=== PATIENT | female | born 1960 | race Caucasian/White ===

== ENCOUNTER 2022-07-11 13:29 | Inpatient (IN) ==
--- NOTE | 2022-07-11 13:49 | Emergency Department Note ---
Impression & Plan Acute hypoxemic respiratory failure, Influenza A, Acute exacerbation of chronic obstructive pulmonary disease, Acute dehydration ED Provider Note NAME: EMMANUEL BACK AGE: 61 SEX: F : 1960 ARRIVES VIA: Walk-In INFORMANT: Patient, ED PROVIDER(S): Jean Mann MD Chief Complaint: Shortness of breath, urgent care referral HPI: Patient presents due to concern for worsening shortness of breath. The patient said that she got up to go to work today and felt very short of breath went to urgent care that stated that she was to immediately be referred here but the patient did receive a breathing treatments as well as IM Solu-Medrol. Patient states that she was feeling unwell beginning on Wednesday and did test positive for the flu. The patient likely has lung disease as she states that she has been a pack-a-day smoker for many many years. Patient states that she does not have any prior history of formally diagnosed COPD. Patient states she has shortness of breath and [place]. No orthopnea. Patient has had cough but it is nonproductive. Patient denies any chest pains. No leg swelling. The patient does have a prior history of a thoracic thoracic aortic aneurysm status post repair. This was completed about 10 years ago. Patient denies any nausea vomiting. The patient does believe that she has had decreased p.o. intake. MDM: Patient presented due to concern for shortness of breath. Patient was noted to be hypoxemic in triage and was placed on nasal cannula supplemental. The patient was ordered blood work chest x-ray and the patient was ordered duo nebs. The patient already did receive steroids prior to arrival. Patient reports receiving IM Solu-Medrol. Patient was also ordered magnesium. The patient has a normal white count mild elevation in hemoglobin at 16.1. The patient did receive IV fluids. Kidney function with prerenal azotemia. Mild elevation in ALT and alk phos. Troponin is not elevated. Patient is flu positive. RSV and COVID-negative. On reassessment the patient still feeling short of breath. Given this with her associated hypoxemia I believe the patient would benefit from inpatient treatment at this time. I did speak with the on-call hospitalist Dr. Ohara and the patient was admitted to the medicine service. Critical Care: I have personally spent 42 minutes of critical care time in direct management of this patient. This includes bedside care, interpretation of diagnostic studies, and testing, discussion with consultants, patient, and family members, and other require inpatient management activities. This 42 minutes is in excess of all separately billable procedures. ROS: See HPI for pertinent positives and negatives. A total of 10 systems were reviewed and otherwise negative. Past medical history: See below Surgical history: See below Social history: See below Physical Exam: GENERAL: Nasal cannula in place. EYE EXAM: Normal conjunctiva. PERRL, no anisocoria and EOM's grossly intact w/o pain. NECK: Supple, no nuchal rigidity, no adenopathy, non-tender. No signs of meningismus. FROM of the neck with good chin to chest and neck extension. No stridor. LUNGS: Inspiratory expiratory wheezing which with a prolonged expiratory phase. Normal chest wall mechanics. HEART: NSR, no MRG. ABDOMEN: Abdomen soft, non-tender, normo-active bowel sounds, no masses, no rebound or guarding. BACK: No CVA TTP. SKIN: No rashes and no bruising. UPPER EXTREMITIES: Upper extremities are grossly normal. LOWER EXTREMITIES: Grossly normal, no edema. Negative Homans' sign bilaterally NEURO EXAM: A&O x3, cranial nerves II-XII grossly intact, normal speech, moves all 4 extremities. Differential diagnoses: Reactive airway disease, pneumonia, pneumothorax, COPD, CHF, infections, cardiac ischemia, pulmonary embolism, musculoskeletal, ga strointestinal, as well as other pathologies. Course: Patient was seen and evaluated the bedside. Full history physical exam was performed. EKG interpreted by co Sinus with short SD, rate of 71, normal QRS no ST elevations. Imaging Studies: See Below Cardiac monitoring: An order was placed for continuous cardiac monitoring. The monitor shows a rate of 88 with sinus rhythm. Past Med/Surg History Medical History COPD (chronic obstructive pulmonary disease) Depression Dyslipidemia Hypothyroidism Surgical History H/O thoracic aortic aneurysm repair Social History Smoking Status: Current every day smoker Preferred Language: Bruneian Feels Safe at Home: Yes Allergies Allergies Allergy/AdvReac Type Severity Reaction Status Date / Time No Known Allergies Allergy Unverified 07/11/22 14:31 Home Meds Home Medications Medication Instructions Recorded Confirmed albuterol sulfate 90 mcg/actuation 2 puff inhalation QID 07/11/22 07/11/22 aerosol inhaler atorvastatin 40 mg tablet 40 mg PO DAILY 07/11/22 07/11/22 cholecalciferol (vitamin D3) 50 50 mcg PO DAILY 07/11/22 07/11/22 mcg (2,000 unit) capsule (Vitamin D3) escitalopram oxalate 10 mg tablet 5 mg PO DAILY 07/11/22 07/11/22 levothyroxine 100 mcg tablet 100 mcg PO DAILY 07/11/22 07/11/22 lorazepam 0.5 mg tablet 0.5 mg PO DAILY PRN Anxiety 07/11/22 07/11/22 metoprolol succinate 25 mg 25 mg PO DAILY 07/11/22 07/11/22 tablet,extended release 24 hr prednisone 10 mg tablet 10 - 60 mg PO UD 07/11/22 07/11/22 Results & Data (ED) Vital Signs Vital Signs - 24 hr 07/11/22 13:35 07/11/22 13:55 07/11/22 14:28 Temperature 36.4 C L Temperature Source Temporal Artery Scan Pulse Rate 83 Pulse Rate [Right Finger] Respiratory Rate 18 Respiratory Effort / Characteristics Non-Labored Spontaneous Respiratory Depth Normal Respiratory Pattern Regular Blood Pressure 123/65 Blood Pressure Mean 84 Blood Pressure Position Sitting Pulse Oximetry 85 L 85 L 95 Oxygen Delivery Method Room Air Room Air Nasal Cannula Oxygen Flow Rate 4 Sepsis Recent Fever Within 48 Hours Yes Sepsis New/Unexplained Change in Mental Status No Sepsis Action Taken by Nursing No Action Required Oxygen Flow Rate - Titration 3 Pulse Oximetry Post Tiitration 93 07/11/22 14:44 07/11/22 16:02 Temperature Temperature Source Pulse Rate Pulse Rate [Right Finger] 78 Respiratory Rate 20 Respiratory Effort / Characteristics Non-Labored Spontaneous Respiratory Depth Respiratory Pattern Blood Pressure Blood Pressure Mean Blood Pressure Position Pulse Oximetry 95 84 L Oxygen Delivery Method Nasal Cannula Nasal Cannula Oxygen Flow Rate 4 0 Sepsis Recent Fever Within 48 Hours Sepsis New/Unexplained Change in Mental Status Sepsis Action Taken by Nursing Oxygen Flow Rate - Titration 6 Pulse Oximetry Post Tiitration 96 Home Medications Current Medication List: was personally reviewed by me Laboratory Data Attestation: I reviewed the patient's lab results. Result diagrams: 07/11/22 14:25 07/11/22 14:25 Lab Results 07/11/22 07/11/22 07/11/22 Range/Units 14:25 14:25 14:25 WBC 9.54 (4.8-10.8) K/ul RBC 4.91 (3.93-5.22) M/uL Hgb 16.1 H (12.0-16.0) g/dl Hct 47.8 H (34.1-44.9) % MCV 97.4 (80.0-100.0) fL MCH 32.8 (25.0-34.0) pg MCHC 33.7 (32.0-36.0) g/dL RDW Std Deviation 47.0 H (36.4-46.3) fL RDW Coeff of Walter 13.1 (11.5-14.5) % Plt Count 162 (130-400) K/uL MPV 9.0 L (9.4-12.3) fL Immature Gran % (Auto) 0.3 % Neut % (Auto) 87.4 % Lymph % (Auto) 10.3 % [place] % (Auto) 1.9 % Eos % (Auto) 0.0 % Baso % (Auto) 0.1 % Neut # (Auto) 8.34 H (1.4-6.5) K/uL Lymph # (Auto) 0.98 L (1.2-3.4) K/uL [place] # (Auto) 0.18 L (0.24-0.82) K/uL Eos # (Auto) 0.00 (0-0.50) K/uL Baso # (Auto) 0.01 (0-0.2) K/uL Immature Gran # (Auto) 0.03 H (0.00-0.02) K/uL Sodium 137 (136-145) mmol/L Potassium 4.1 (3.5-5.1) mmol/L Chloride 99 (98-107) mmol/L Carbon Dioxide 33 H (21-32) mmol/L Anion Gap 5 (3-11) BUN 26 H (6-23) mg/dl Creatinine 0.71 (0.6-1.2) mg/dl Est Cr Clr Drug Dosing 78.9 ml/min Est GFR ( Amer) 107.3 ml/min Est GFR (Non-Af Amer) 92.6 ml/min BUN/Creatinine Ratio 36.6 H (10-20) Glucose 140 H (70-99(Fasting)) mg/dl Calcium 8.5 (8.5-10.1) mg/dl Magnesium 1.8 (1.7-2.4) mg/dl Total Bilirubin 0.4 (0.2-1.0) mg/dl AST 36 (13-39) U/L ALT 59 H (7-52) U/L Alkaline Phosphatase 114 H (34-104) U/L Troponin I High Sens 3.8 (0-14) pg/ml Total Protein 6.8 (6.0-8.3) gm/dl Albumin 3.8 (3.4-5.0) gm/dl Globulin 3.0 (2.5-4.0) gm/dl Albumin/Globulin Ratio 1.3 (0.9-2) Procalcitonin < 0.05 (0-0.5) ng/ml SARS-CoV-2 (PCR) (Negative) Influenza Type A (PCR) (Neg) Influenza Type B (PCR) (Neg) RSV (RT-PCR) (Neg) 07/11/22 Range/Units 14:25 WBC (4.8-10.8) K/ul RBC (3.93-5.22) M/uL Hgb (12.0-16.0) g/dl Hct (34.1-44.9) % MCV (80.0-100.0) fL MCH (25.0-34.0) pg MCHC (32.0-36.0) g/dL RDW Std Deviation (36.4-46.3) fL RDW Coeff of Walter (11.5-14.5) % Plt Count (130-400) K/uL MPV (9.4-12.3) fL Immature Gran % (Auto) % Neut % (Auto) % Lymph % (Auto) % [place] % (Auto) % Eos % (Auto) % Baso % (Auto) % Neut # (Auto) (1.4-6.5) K/uL Lymph # (Auto) (1.2-3.4) K/uL [place] # (Auto) (0.24-0.82) K/uL Eos # (Auto) (0-0.50) K/uL Baso # (Auto) (0-0.2) K/uL Immature Gran # (Auto) (0.00-0.02) K/uL Sodium (136-145) mmol/L Potassium (3.5-5.1) mmol/L Chloride (98-107) mmol/L Carbon Dioxide (21-32) mmol/L Anion Gap (3-11) BUN (6-23) mg/dl Creatinine (0.6-1.2) mg/dl Est Cr Clr Drug Dosing ml/min Est GFR ( Amer) ml/min Est GFR (Non-Af Amer) ml/min BUN/Creatinine Ratio (10-20) Glucose (70-99(Fasting)) mg/dl Calcium (8.5-10.1) mg/dl Magnesium (1.7-2.4) mg/dl Total Bilirubin (0.2-1.0) mg/dl AST (13-39) U/L ALT (7-52) U/L Alkaline Phosphatase (34-104) U/L Troponin I High Sens (0-14) pg/ml Total Protein (6.0-8.3) gm/dl Albumin (3.4-5.0) gm/dl Globulin (2.5-4.0) gm/dl Albumin/Globulin Ratio (0.9-2) Procalcitonin (0-0.5) ng/ml SARS-CoV-2 (PCR) NEGATIVE (Negative) Influenza Type A (PCR) Positive A* (Neg) Influenza Type B (PCR) Negative (Neg) RSV (RT-PCR) Negative (Neg) Administered Medications Discontinued Medications Albuterol (Albut/Ipratrop 3mg/0.5mg Neb 3 Ml Vial) 12 ml INH ONE STA Stop: 07/11/22 14:11 Last Admin: 07/11/22 14:44 Dose: 12 ml Documented By: HA Albuterol (Albut/Ipratrop 3mg/0.5mg Neb 3 Ml Vial) 12 ml NEB ONE ONE; Protocol Stop: 07/11/22 16:19 Last Admin: 07/11/22 16:40 Dose: 12 ml Documented By: HA Guaifenesin (Guaifenesin 600 Mg Tabcr) 1,200 mg PO NOW STA Stop: 07/11/22 16:21 Last Admin: 07/11/22 16:25 Dose: 1,200 mg Documented By: CANDIDA Sodium Chloride (Nss 1000ml) 1,000 mls @ 999 mls/hr IV .Q1H1M JUAN Stop: 07/11/22 15:15 Last Infusion: 07/11/22 15:25 Dose: 0 mls/hr Documented By: Admin: 07/11/22 14:24 Dose: 999 mls/hr Documented By: CANDIDA Magnesium Sulfate/Dextrose (Magnesium Sulfate / D5w) 1 gm in 100 mls @ 100 mls/hr IV Q1H JUAN Stop: 07/11/22 16:14 Last Infusion: 07/11/22 16:03 Dose: 0 mls/hr Documented By: Admin: 07/11/22 15:03 Dose: 100 mls/hr Documented By: Infusion: 07/11/22 15:03 Dose: 100 mls/hr Documented By: Admin: 07/11/22 14:41 Dose: 100 mls/hr Documented By: CANDIDA Oseltamivir Phosphate (Oseltamivir Phosphate 75 Mg Cap) 75 mg PO NOW STA; Protocol Stop: 07/11/22 16:31 Last Admin: 07/11/22 16:58 Dose: 75 mg Documented By: CANDIDA Imaging Data Radiologist's Impression: Chest X-Ray 07/11/22 14:10 XR chest 1V portable CLINICAL HISTORY: Dyspnea. COMPARISON STUDY: No previous studies for comparison. FINDINGS: Median sternotomy wires. Surgical clips project over the upper mediastinum. Lung volumes are normal. Lungs are clear. There is no pneumothorax or pleural effusion. Cardiac size is normal. Mediastinal contours are normal. There is no evidence for pulmonary edema. IMPRESSION: No acute cardiopulmonary findings. ACT 112: Negative or not required by law. Electronically signed by: Augusto Johnson M.D. 07/11/2022 3:11 PM Discharge Plan Visit Data Chief Complaint: Flu Like Symptoms Stated Complaint: FLU LIKE SYMPTOMS, POSSIBLE PNEUMONIA ED Provider: Jean Mann Discharge Problem: Acute hypoxemic respiratory failure, Influenza A, Acute exacerbation of chronic obstructive pulmonary disease, Acute dehydration Patient Disposition: Admitted As Inpatient Discharge Instructions Interventions: ED Discharge Assessment Last Done: 07/11/22 18:57
[2022-07-11] MEDS ORDERED: ALBUT/IPRATROP 3MG/0.5MG NEB 3 ML VIAL INH STA (14:10)
[2022-07-11] MEDS ORDERED: SODIUM CHLORIDE 0.9% 1000ML 1,000 ML IV SCH (14:15)
[2022-07-11] MEDS: MAGNESIUM SULFATE / D5W 1 GM/100 ML BAG IV SCH ×2 (14:41→15:03)
[2022-07-11 14:49] LABS: Basophils # (auto) 0.01 K/uL (0-0.2); Basophils % (auto) 0.1 %; Hematocrit (blood only) 47.8 % (34.1-44.9); Hemoglobin 16.1 g/dl (12.0-16.0); Immature Granulocytes # (auto) 0.03 K/uL (0.00-0.02); Immature Granulocytes % (auto) 0.3 %; Lymphocytes # (auto) 0.98 K/uL (1.2-3.4); Lymphocytes % (auto) 10.3 %; Mean Corpuscular Hemoglobin 32.8 pg (25.0-34.0); Mean Corpuscular Hgb Conc 33.7 g/dL (32.0-36.0); Mean Corpuscular Volume 97.4 fL (80.0-100.0); Monocytes # (auto) 0.18 K/uL (0.24-0.82); Monocytes % (auto) 1.9 %; Neutrophils # (auto) 8.34 K/uL (1.4-6.5); Neutrophils % (auto) 87.4 %; Platelet Count 162 K/uL (130-400); RDW Coefficient of Variation 13.1 % (11.5-14.5); Red Blood Count 4.91 M/uL (3.93-5.22); White Blood Count 9.54 K/ul (4.8-10.8)
--- NOTE | 2022-07-11 15:13 | XRay Report ---
XR chest 1V portable CLINICAL HISTORY: Dyspnea. COMPARISON STUDY: No previous studies for comparison. FINDINGS: Median sternotomy wires. Surgical clips project over the upper mediastinum. Lung volumes ar e normal. Lungs are clear. There is no pneumothorax or pleural effusion. Cardiac size is normal. Medi astinal contours are normal. There is no evidence for pulmonary edema. IMPRESSION: No acute cardiopulmonary findings. ACT 112: Negative or not required by law. Electronically signed by: Augusto Johnson M.D. 07/11/2022 3:11 PM
[2022-07-11 15:17] LABS: Albumin Globulin Ratio 1.3 (0.9-2); Albumin Level 3.8 gm/dl (3.4-5.0); BUN Creatinine Ratio 36.6 (10-20); Bilirubin,Total 0.4 mg/dl (0.2-1.0); Calcium 8.5 mg/dl (8.5-10.1); Creatinine Clr Calc Pharmacy 78.9 ml/min; Est GFR (African American) 107.3 ml/min; Est GFR (Non-African American) 92.6 ml/min; Magnesium 1.8 mg/dl (1.7-2.4); Potassium 4.1 mmol/L (3.5-5.1); Total Protein 6.8 gm/dl (6.0-8.3); Troponin I High Sensitivity 3.8 pg/ml (0-14)
[2022-07-11 15:28] LABS: Influenza B virus by PCR Negative (Neg); RSV by PCR Negative (Neg); SARS CoV2 RNA(COVID-19) Ceph NEGATIVE (Negative)
[2022-07-11 15:42] LABS: Influenza A virus by PCR Positive (Neg)
[2022-07-11] MEDS ORDERED: ALBUT/IPRATROP 3MG/0.5MG NEB 3 ML VIAL NEB ONE (16:18)
[2022-07-11] MEDS ORDERED: guaiFENesin 600 MG TABCR PO STA (16:20)
[2022-07-11] MEDS ORDERED: OSELTAMIVIR PHOSPHATE 75 MG CAP PO STA (16:30)
--- NOTE | 2022-07-11 17:00 | History & Physical Report ---
Date of Service July 11, 2022 Assessment & Plan (1) Influenza A: Plan: Patient test positive for a moment influenza after having a 2-day prodromal inner home. She called her primary care doctor who is in [facility] received a prednisone taper She started on Tamiflu therapy here and will be to have her acute on chronic respiratory failure treated as below Procalcitonin is negative presentation the patient will not be given antibiotics (2) COPD (chronic obstructive pulmonary disease): Plan: Patient is COPD with abnormal chest x-ray with hyperinflation and continued tobacco use. She is continued on DuoNebs will be given intravenous Solu-Medrol Patient required supplemental oxygen is tachypneic and frequently desaturates just with conversation (3) Tobacco abuse: Plan: Patient counseled on smoking cessation she also denies by offering of a nicotine patch (4) H/O thoracic aortic aneurysm repair: Plan: Patient had this done in [place] in [place]. Reportedly it is slightly enlarging. I offered work-up. But the patient does not wish to prolong her inpatient hospital stay. She is agreeable to being connected with outpatient providers in the area to continue to have surveillance of her aortic aneurysm repair (5) Depression: Plan: Continue Lexapro (6) Hypothyroidism: Plan: Synthroid continues at 100 mcg (7) Dyslipidemia: Plan: Patient is on atorvastatin 40 Plan Lovenox for DVT prevention History of Present Illness Primary Care Provider: Jarrod Hardwick, DO 61-year-old female who is currently a smoker who has been ill for 2 to 3 days at home. She recently moved to the area and called her family doctor to [facility] who phoned her in a [employer] Dosep[employer]. Patient has had both her COVID and influenza vaccines but test influenza positive here in the emergency department. She is in acute on chronic respiratory distress with hypoxia and increased work of breathing with tachypnea and accessory muscle use. Her chest x-ray does not show any pneumonia but she does have changes of COPD She admitted for hypoxia oxygen support Tamiflu and treatment for acute on c hronic respiratory failure COPD Allergies Allergy/AdvReac Type Severity Reaction Status Date / Time No Known Allergies Allergy Unverified 07/11/22 14:31 Home Medications Medication Instructions Recorded Confirmed Type albuterol sulfate 90 mcg/actuation 2 puff inhalation QID 07/11/22 07/11/22 History aerosol inhaler atorvastatin 40 mg tablet 40 mg PO DAILY 07/11/22 07/11/22 History cholecalciferol (vitamin D3) 50 50 mcg PO DAILY 07/11/22 07/11/22 History mcg (2,000 unit) capsule (Vitamin D3) escitalopram oxalate 10 mg tablet 5 mg PO DAILY 07/11/22 07/11/22 History levothyroxine 100 mcg tablet 100 mcg PO DAILY 07/11/22 07/11/22 History lorazepam 0.5 mg tablet 0.5 mg PO DAILY PRN Anxiety 07/11/22 07/11/22 History metoprolol succinate 25 mg 25 mg PO DAILY 07/11/22 07/11/22 History tablet,extended release 24 hr prednisone 10 mg tablet 10 - 60 mg PO UD 07/11/22 07/11/22 History Past Med/Surg History Medical History (Updated 07/11/22 @ 16:55 by Audi Ohara MD) COPD (chronic obstructive pulmonary disease) Depression Dyslipidemia Hypothyroidism Social History Smoking Status: Current every day smoker Preferred Language: Venezuelan Feels Safe at Home: Yes Review of Systems 2 Review of Systems: Moderate respiratory distress and fatigue no headache, no visual changes no speech or swallowing issues no chest pain, pressure or palpitations shortness of breath, nonproductive cough plus audible wheezes no abdominal pain, nausea or vomiting, recently having loose bowel movements no dysuria, hematuria or frequency no focal joint pain or swelling no back pain, CVA tenderness or radicular pain no bruising, bleeding or rashes no focal signs of weakness or numbness or altered sensation no complaints of anxiety or depression.. Physical Exam Physical Exam: The patient appeared well nourished and normally developed. She is in moderate respiratory distress with tachypnea and increased use of accessory muscles Vital signs as documented. Head exam is normocephalic atraumatic Neck is without JVD, thyromegaly, or carotid bruits. Lungs are poor air movement throughout with expiratory wheezes Cardiac exam, Rhythm is regular.. No murmurs, rubs or gallops. Abdominal exam reveals normal bowel sounds, soft non tender, no masses Extremities are nonedematous and both pedal pulses are present Neurologic exam is alert and oriented, no focal loss of strength or sensation Skin is without bruises or rashes Psychologically is with concerns for anxiety home lorazepam as ordered Results & Data Results & Data ([facility]) Vital Signs (Past 12 Hours) Vital Signs Temp Pulse Pulse Resp BP Pulse Ox O2 Del Method 07/11/22 16:02 84 L Nasal Cannula 07/11/22 14:44 78 20 95 Nasal Cannula 07/11/22 14:28 95 Nasal Cannula 07/11/22 13:55 85 L Room Air 07/11/22 13:35 97.5 F L 83 18 123/65 85 L Room Air O2 Flow Rate 07/11/22 16:02 0 07/11/22 14:44 4 07/11/22 14:28 4 07/11/22 13:55 07/11/22 13:35 Diagnostic Findings Chest X-Ray 07/11/22 14:10 XR chest 1V portable CLINICAL HISTORY: Dyspnea. COMPARISON STUDY: No previous studies for comparison. FINDINGS: Median sternotomy wires. Surgical clips project over the upper mediastinum. Lung volumes are normal. Lungs are clear. There is no pneumothorax or pleural effusion. Cardiac size is normal. Mediastinal contours are normal. There is no evidence for pulmonary edema. IMPRESSION: No acute cardiopulmonary findings. ACT 112: Negative or not required by law. Electronically signed by: Augusto Johnson M.D. 07/11/2022 3:11 PM Code Status & VTE Plan VTE Prophylaxis Plan VTE Prophylaxis will be ordered: Yes PG Care Time/CCT Total # of Minutes Spent Total Time Spent with Patient: Total time spent is greater than 50% in coordination of care (as documented) at patient's floor/unit and/or counseling patient: Coding Level of Care Code 68375 Initial Inpt Care Lvl 3 Diagnoses Influenza A J10.1 COPD (chronic obstructive pulmonary disease) J44.9 Tobacco abuse Z72.0 H/O thoracic aortic aneurysm repair Z98.890; Z86.79 Depression F32.A Hypothyroidism E03.9 Dyslipidemia E78.5
[2022-07-11] MEDS ORDERED: ACETAMINOPHEN 325 MG TAB PO PRN (19:10)
[2022-07-11] MEDS ORDERED: LORazepam 0.5 MG TAB PO PRN (19:10)
[2022-07-11] MEDS ORDERED: ONDANSETRON INJ 2 MG/ML 2 ML VIAL IV PRN (19:10)
[2022-07-11] MEDS ORDERED: ALUMINUM/MAGNESIUM SUSP 30 ML UDC PO PRN (19:10)
[2022-07-11] MEDS: ALBUT/IPRATROP 3MG/0.5MG NEB 3 ML VIAL NEB SCH (19:43)
[2022-07-11] MEDS: ENOXAPARIN INJ 40 MG/0.4 ML SYR SQ SCH (21:36)
[2022-07-12] MEDS: LEVOTHYROXINE SODIUM 100 MCG TABLET PO SCH (06:17)
[2022-07-12] MEDS: methylPREDNISolone 40 MG in SYRINGE 0 ML IV SCH ×2 (06:18→18:20)
[2022-07-12 07:02] LABS: Hematocrit (blood only) 44.4 % (34.1-44.9); Hemoglobin 15.2 g/dl (12.0-16.0); Mean Corpuscular Hemoglobin 32.4 pg (25.0-34.0); Mean Corpuscular Hgb Conc 34.2 g/dL (32.0-36.0); Mean Corpuscular Volume 94.7 fL (80.0-100.0); Mean Platelet Volume 9.2 fL (9.4-12.3); Platelet Count 158 K/uL (130-400); RDW Coefficient of Variation 12.8 % (11.5-14.5); RDW Standard Deviation 44.7 fL (36.4-46.3); Red Blood Count 4.69 M/uL (3.93-5.22)
[2022-07-12 07:35] LABS: BUN Creatinine Ratio 45.5 (10-20); Calcium 8.2 mg/dl (8.5-10.1); Creatinine Clr Calc Pharmacy 101.8 ml/min; Est GFR (African American) 118.2 ml/min; Est GFR (Non-African American) 101.9 ml/min; Magnesium 2.3 mg/dl (1.7-2.4); Potassium 4.5 mmol/L (3.5-5.1)
[2022-07-12] MEDS: ALBUT/IPRATROP 3MG/0.5MG NEB 3 ML VIAL NEB SCH ×4 (07:35→19:03)
[2022-07-12] MEDS: METOPROLOL SUCC 25MG EXT REL TAB PO SCH (08:09)
[2022-07-12] MEDS: ESCITALOPRAM OXALATE 10 MG TAB PO SCH (08:09)
[2022-07-12] MEDS: OSELTAMIVIR PHOSPHATE 75 MG CAP PO SCH ×2 (08:10→21:17)
[2022-07-12] MEDS: ATORVASTATIN 40 MG TAB PO SCH (08:10)
--- NOTE | 2022-07-12 10:01 | Electrocardiogram Report ---
Test Reason : Blood Pressure : / mmHG Vent. Rate : 071 BPM Atrial Rate : 071 BPM P-R Int : 110 ms QRS Dur : 070 ms QT Int : 400 ms P-R-T Axes : 084 080 083 degrees QTc Int : 434 ms Poor data quality, interpretation may be adversely affected Sinus rhythm with Premature supraventricular complexes Right atrial enlargement Borderline ECG No previous ECGs available Confirmed by Evan Vásquez ([id number]) on 07/12/2022 10:00:54 AM Referred By: REFERRED SELF Confirmed By:Daron Vásquez
--- NOTE | 2022-07-12 12:20 | Hospitalist Progress Note ---
Date of Service July 12, 2022 Assessment & Plan (1) Acute hypoxemic respiratory failure: Plan: - Secondary to acute COPD exacerbation and Influenza A - Continue 2 L O2 nc at this time - Respiratory following - check 2 step later today, patient states she would like to try and go home later (but states she is NOT willing to have home with Oxygen) She had 2 step today and recommended Oxygen with exertion and she is NOT willing to have home O2 Will have patient repeat the 2 step tomorrow (2) Acute exacerbation of chronic obstructive pulmonary disease: Plan: - continue neb treatments, flutter valve, tamiflu, Solu-medrol - Procalcitonin normal, WBC normal (no antibiotics given) - Patient states she is motivated and willing to stop smoking (3) Influenza A: Plan: - Continue Tamiflu, O2, solumedrol, mebulizer treatments, flutter valve (4) Dyslipidemia: Plan: Continue Atorvastatin 40mg daily (5) Hypothyroidism: Plan: Continue Levothyroxine 100mcg daily (6) Depression: Plan: continue Lexapro (7) Tobacco abuse: Plan: - Counseled on smoking cessation and treatment for this Patient states she is not interested in having any medication to help her quit. she states she is willing though to stop smoking (8) COPD (chronic obstructive pulmonary disease): Plan: - CXR with hyperinflation and continued tobacco use. - continue on DuoNebs and IV Solu-Medrol Yesterday in ER patient required supplemental oxygen is tachypneic and frequently desaturates just with conversation, today she was not in distress with O2 in place but was only saturating in low to mid 80s (9) History of thoracic aortic aneurysm repair: Plan: Patient had this repair at [facility] in 2011. She states she follows with them and her PCP She is scheduled for repeat imges in October Offered work up here and she does not wish to have any scans during this admission Admission and Anticipated Discharge Date Admission Date: July 11, 2022 Supervising Physician Co-Signing Physician Notes I did not personally see or examine the patient today. I reviewed all vinson points including radiology, labs, vitals and agree with Yanira Orona PA-C except as otherwise noted: none. Subjective Patient was sleeping and awoke to her name. She had her O2 off and states she took it off at 8 Am for breakfast and then fell asleep without it. She states she is feeling some better and would like to go home today. She states she is not going to use Oxygen at home, even if we tell or suggest that she does. I placed a pulse oximeter on patient (she had been off O2 x 3 hours) Saturation off O2 was 83-85. Placed Oxygen back on and Saturations improved to 93-96. She was not in any distress off the Oxygen but saturation was less than 85%. She denies any chest pain, shortness of breath, abdominal pain or N/V. Patient states she was smoking 1ppd and has had no cigarettes since Wednesday. She does not want a nicotine patch. She states she is motivated to finally stop smoking. She also has a hx of a thoracic aortic aneurysm repair and follows with [facility] is to have repeat scan in October. ED offered work up while here and patient refused and continues to refuse. Review of Systems Constitutional: + fatigue; no fever, no chills and no body aches Patient had severe myalgias prior to admission but states they are improved Ear, Nose, Mouth, Throat: no ear pain, no nasal congestion, no post nasal drip and no epistaxis Respiratory: + cough and + chest congestion; no dyspnea, no hemoptysis and no pain on inspiration Cardiovascular: no chest pain, no dyspnea at rest, no syncope and no edema Gastrointestinal: no nausea, no vomiting, no change in bowel habits, no constipation and no blood in stools Genitourinary: no dysuria, no difficulty urinating and no hematuria Integumentary: no rash, no lesions, no new lesions and no erythema Neurologic: no falls, no seizure-like activity, no headache(s) and no confusion Psychiatric: + depression and + hopelessness; no suicidal ideation, no confusion and no hallucinations Patient states st times she is depressed with her multiple medical issues and she is aware she has caused the lung disease by smoking. She does states she is motivated to stop smoking once and for all since this illness. But she states that she refuses to be discharged home with Oxygen, but she is willing to keep on for now. Physical Exam Constitutional: WD/WN, vitals as above ENMT: external ear and nose normal, oropharynx normal Neck: trachea midline, no thyromegaly Respiratory: normal respiratory effort, + cough, able to speak in complete sentences and + prolonged expiratory phase; no respiratory distress, no labored breathing and does not use accessory muscles mild expiratory wheeze Cardiovascular: RRR, no murmur, no edema Gastrointestinal (Abdomen): normal bowel sounds, soft, nontender, no hepatosplenomegaly Neurologic: PERRL, EOMI, accommodation nl, no face palsy, no dysarthria Psychiatric: A+Ox3, euthymic affect Results & Data Results & Data ([facility]) Vital Signs (Past 12 Hours) Vital Signs Temp Pulse Pulse Resp BP Pulse Ox O2 Del Method 07/12/22 11:51 67 20 93 Nasal Cannula 07/12/22 11:41 36.2 C L 66 18 126/61 93 Nasal Cannula 07/12/22 09:05 Nasal Cannula 07/12/22 07:34 36.6 C 65 18 116/65 96 Room Air 07/12/22 07:36 65 16 96 Nasal Cannula 07/12/22 07:06 79 07/12/22 04:12 36.5 C 72 20 132/73 90 Nasal Cannula O2 Flow Rate 07/12/22 11:51 2 07/12/22 11:41 2 07/12/22 09:05 1 07/12/22 07:34 07/12/22 07:36 2 07/12/22 07:06 07/12/22 04:12 2 Laboratory Results Abnormal lab results 07/11/22 07/11/22 07/11/22 Range/Units 14:25 14:25 14:25 Hgb 16.1 H (12.0-16.0) g/dl Hct 47.8 H (34.1-44.9) % RDW Std Deviation 47.0 H (36.4-46.3) fL MPV 9.0 L (9.4-12.3) fL Neut # (Auto) 8.34 H (1.4-6.5) K/uL Lymph # (Auto) 0.98 L (1.2-3.4) K/uL Iron # (Auto) 0.18 L (0.24-0.82) K/uL Immature Gran # (Auto) 0.03 H (0.00-0.02) K/uL Carbon Dioxide 33 H (21-32) mmol/L BUN 26 H (6-23) mg/dl Creatinine (0.6-1.2) mg/dl BUN/Creatinine Ratio 36.6 H (10-20) Glucose 140 H (70-99(Fasting)) mg/dl Calcium (8.5-10.1) mg/dl ALT 59 H (7-52) U/L Alkaline Phosphatase 114 H (34-104) U/L Influenza Type A (PCR) Positive A* (Neg) 07/12/22 07/12/22 Range/Units 05:44 05:44 Hgb (12.0-16.0) g/dl Hct (34.1-44.9) % RDW Std Deviation (36.4-46.3) fL MPV 9.2 L (9.4-12.3) fL Neut # (Auto) (1.4-6.5) K/uL Lymph # (Auto) (1.2-3.4) K/uL Iron # (Auto) (0.24-0.82) K/uL Immature Gran # (Auto) (0.00-0.02) K/uL Carbon Dioxide 35 H (21-32) mmol/L BUN 25 H (6-23) mg/dl Creatinine 0.55 L (0.6-1.2) mg/dl BUN/Creatinine Ratio 45.5 H (10-20) Glucose 150 H (70-99(Fasting)) mg/dl Calcium 8.2 L (8.5-10.1) mg/dl ALT (7-52) U/L Alkaline Phosphatase (34-104) U/L Influenza Type A (PCR) (Neg) Diagnostic Findings Chest X-Ray 07/11/22 14:10 XR chest 1V portable CLINICAL HISTORY: Dyspnea. COMPARISON STUDY: No previous studies for comparison. FINDINGS: Median sternotomy wires. Surgical clips project over the upper mediastinum. Lung volumes are normal. Lungs are clear. There is no pneumothorax or pleural effusion. Cardiac size is normal. Mediastinal contours are normal. There is no evidence for pulmonary edema. IMPRESSION: No acute cardiopulmonary findings. ACT 112: Negative or not required by law. Electronically signed by: Augusto Johnson M.D. 07/11/2022 3:11 PM PG Care Time/CCT Total # of Minutes Spent Total Time Spent with Patient: Total time spent is greater than 50% in coordination of care (as documented) at patient's floor/unit and/or counseling patient: Coding Level of Care Code 53990 Subseq Hosp Care Lvl 3 Medical Decision Making High Complexity Diagnoses Acute hypoxemic respiratory failure J96.01 Acute exacerbation of chronic obstructive pulmonary disease J44.1 Influenza A J10.1 Dyslipidemia E78.5 Hypothyroidism E03.9 Depression F32.A Tobacco abuse Z72.0 COPD (chronic obstructive pulmonary disease) J44.9 History of thoracic aortic aneurysm repair Z98.890; Z86.79
[2022-07-12] MEDS: ENOXAPARIN INJ 40 MG/0.4 ML SYR SQ SCH (18:27)
[2022-07-13] MEDS: LEVOTHYROXINE SODIUM 100 MCG TABLET PO SCH (05:01)
[2022-07-13] MEDS: methylPREDNISolone 40 MG in SYRINGE 0 ML IV SCH (05:54)
[2022-07-13 06:24] LABS: Hematocrit (blood only) 45.9 % (34.1-44.9); Hemoglobin 15.3 g/dl (12.0-16.0); Mean Corpuscular Hemoglobin 32.1 pg (25.0-34.0); Mean Corpuscular Hgb Conc 33.3 g/dL (32.0-36.0); Mean Corpuscular Volume 96.2 fL (80.0-100.0); Mean Platelet Volume 9.2 fL (9.4-12.3); Platelet Count 176 K/uL (130-400); RDW Coefficient of Variation 12.5 % (11.5-14.5); RDW Standard Deviation 45.1 fL (36.4-46.3); Red Blood Count 4.77 M/uL (3.93-5.22); White Blood Count 12.53 K/ul (4.8-10.8)
[2022-07-13 07:04] LABS: BUN Creatinine Ratio 50.9 (10-20); Creatinine Clr Calc Pharmacy 101.8 ml/min; Est GFR (African American) 118.2 ml/min; Est GFR (Non-African American) 101.9 ml/min
[2022-07-13] MEDS: ALBUT/IPRATROP 3MG/0.5MG NEB 3 ML VIAL NEB SCH ×3 (07:06→15:14)
[2022-07-13] MEDS: ESCITALOPRAM OXALATE 10 MG TAB PO SCH (08:28)
[2022-07-13] MEDS: OSELTAMIVIR PHOSPHATE 75 MG CAP PO SCH (08:29)
[2022-07-13] MEDS: METOPROLOL SUCC 25MG EXT REL TAB PO SCH (09:49)
[2022-07-13] MEDS: ATORVASTATIN 40 MG TAB PO SCH (09:49)
[2022-07-13] MEDS ORDERED: UMECLIDINIUM/VILANTEROL 62.5/25MCG 7 PUFFS/INHALER INH SCH (14:00)
--- NOTE | 2022-07-13 14:29 | Discharge Summary ---
Date of Service July 13, 2022 Admission HPI Per Admitting Provider 61-year-old female who is currently a smoker who has been ill for 2 to 3 days at home. She recently moved to the area and called her family doctor to [facility] who phoned her in a [employer]ose[employer]. Patient has had both her COVID and influenza vaccines but test influenza positive here in the emergency department. She is in acute on chronic respiratory distress with hypoxia and increased work of breathing with tachypnea and accessory muscle use. Her chest x-ray does not show any pneumonia but she does have changes of COPD She admitted for hypoxia oxygen support Tamiflu and treatment for acute on chronic respiratory failure COPD Admission Exam Per Admitting Provider The patient appeared well nourished and normally developed. She is in moderate respiratory distress with tachypnea and increased use of accessory muscles Vital signs as documented. Head exam is normocephalic atraumatic Neck is without JVD, thyromegaly, or carotid bruits. Lungs are poor air movement throughout with expiratory wheezes Cardiac exam, Rhythm is regular.. No murmurs, rubs or gallops. Abdominal exam reveals normal bowel sounds, soft non tender, no masses Extremities are nonedematous and both pedal pulses are present Neurologic exam is alert and oriented, no focal loss of strength or sensation Skin is without bruises or rashes Psychologically is with concerns for anxiety home lorazepam as ordered Principal Diagnosis Influenza A COPD Acute hypoxia Tobacco abuse Discharge Exam Constitutional WD/WN, vitals as above ENMT external ear and nose normal, oropharynx normal Neck trachea midline, no thyromegaly Respiratory normal respiratory effort (mild end expiratory wheeze), able to speak in complete sentences and + prolonged expiratory phase; no respiratory distress, no labored breathing and does not use accessory muscles Cardiovascular RRR, no murmur, no edema Extremities: no calf tenderness, no pedal edema and no edema Gastrointestinal (Abdomen) normal bowel sounds, soft, nontender, no hepatosplenomegaly Neurologic PERRL, EOMI, accommodation nl, no face palsy, no dysarthria Psychiatric A+Ox3, euthymic affect Discharge Data Allergies Allergy/AdvReac Type Severity Reaction Status Date / Time No Known Allergies Allergy Unverified 07/11/22 14:31 Consultations 07/11/22 16:24 ED Decision to Admit Stat Ordered Studies CXR XR chest 1V portable CLINICAL HISTORY: Dyspnea. COMPARISON STUDY: No previous studies for comparison. FINDINGS: Median sternotomy wires. Surgical clips project over the upper mediastinum. Lung volumes are normal. Lungs are clear. There is no pneumothorax or pleural effusion. Cardiac size is normal. Mediastinal contours are normal. There is no evidence for pulmonary edema. IMPRESSION: No acute cardiopulmonary findings. Hospital Course (1) Acute hypoxemic respiratory failure: - Secondary to acute COPD exacerbation and Influenza A Patient was evaluated by respiratory and had a 2 step that revealed patient at this time is requiring 2 liters at rest and 3 Liters with exertion Patient was at 85% on RA at rest (2) Acute exacerbation of chronic obstructive pulmonary disease: - Will start daily Anoro Ellipta today and will send rx to pharmacy to continue at home and as needed albuterol - Patient will need to follow up with a remote advisor and have PFTs done as outpatient - Patient states she is motivated and willing to stop smoking (3) Influenza A: - Continue Tamiflu 75 mg BID for total of 5 days treatment (07/12/22 to 07/16/22) (4) Dyslipidemia: Continue Atorvastatin 40mg daily (5) Hypothyroidism: Continue Levothyroxine 100mcg daily (6) Depression: continue Lexapro 5mg daily (7) Tobacco abuse: - Counseled on smoking cessation and treatment for this Patient states she is not interested in having any medication to help her quit. she states she is willing though to stop smoking (8) COPD (chronic obstructive pulmonary disease): - CXR with hyperinflation and continued tobacco use. - As above with Oxygen treatment and will start Anoro Ellipta daily and as needed albuterol - Will need to follow up with PCP and also Aligning Inspector (9) History of thoracic aortic aneurysm repair: Patient had this repair at [facility] in 2011. She states she follows with them and her PCP She is scheduled for repeat imges in October Offered work up here and she did not wish to have any scans during this admission Total Time Total Time Spent Total Time Spent (In Minutes): 35 Discharge Plan Discharge Items Patient Disposition: Home - Self-Care Reason For Visit: INFLUENZA A, ACUTE EXACERBATION OF CHRONIC LUNG DX Discharge Diagnosis: Hypoxia Influenza A COPD Tobacco abuse hypothyroidism Depression Hyperlipidemia Hx of thoracic aortic aneurysm repair Condition on Discharge: Fair Activity: Resume your previous activity Weightbearing: Full weightbearing Non-emergency contact: Primary Care Provider Call non-emergency contact if: you have any medication questions, your symptoms worsen and your temperature is above 101.5 Follow-up/Referrals: Jarrod Hardwick DO [Primary Care Provider] - Diet: Heart Healthy Addtl Attending Provider Instructions: You were admitted with cough and shortness of breath and was found to have Influenza A and low blood oxygen levels. You were placed on Tamiflu which is an antiviral medicine for the flu and placed on oxygen. A respiratory therapist did a 2 step oxygen test that revealed your will need to be discharged on 2 liters of oxygen while at rest and 3 liters with walking and exertion. We will get you an appointment with a new primary care doctor locally. A corrections caseworker will call you tomorrow with an appointment. (family practice offices are closed today for holiday observation) Also recommend that you have an appointment with a remote advisor to get pulmonary function testing. We started you also on an inhaler called Krystal Almanza one inhalation daily and also to use albuterol inhaler as needed. We will give eller a work excuse for the next week until you are able to follow up with a new family doctor. Above all else need to stop smoking. Discussed nicotine patches, gum etc.. and also discussed oral medications for smoking cessation. You stated you tried those in the past and did not want to start such treatment at this time. Pending Studies at Discharge: No Stand-Alone Forms: My [facility], Work/School Release, Smoking Cessation Medications and DC Order Prescriptions: New oseltamivir [Tamiflu] 75 mg Capsule 75 mg PO BID Qty: 7 0RF Rx Instructions: Star one tonight and then one 2 x per day till 07/16/22 Anoro Ellipta 62.5-25 mcg/actuation Blister With Device 1 ea inhalation DAILY Qty: 60 0RF Rx Instructions: start this inhaler 07/14/22 prednisone 50 mg tablet 50 mg PO DAILY 3 Days Qty: 3 0RF Continued atorvastatin 40 mg tablet 40 mg PO DAILY levothyroxine 100 mcg tablet 100 mcg PO DAILY lorazepam 0.5 mg tablet 0.5 mg PO DAILY PRN (Reason: Anxiety) metoprolol succinate 25 mg tablet extended release 24 hr 25 mg PO DAILY albuterol sulfate 90 mcg/actuation HFA aerosol inhaler 2 puff INHALATION QID escitalopram oxalate 10 mg tablet 5 mg PO DAILY cholecalciferol (vitamin D3) [Vitamin D3] 50 mcg (2,000 unit) Capsule 50 mcg PO DAILY Discontinued prednisone 10 mg tablet 10 - 60 mg PO UD Rx Instructions: day 1 and 2 (60 mg), day 3 and 4 (50mg), day 5 and 6 (40mg).... etc until gone after 12 days Discharge Orders: Discharge Order (Routine); Ordered 07/13/22 Ordered By: Lydia Mondragon/Other Patient Handouts: Chest and Lung Problems, COPD Using Inhalers, What Is COPD, COPD Quit Smoking, Diagnosing COPD, Treatment for COPD, The Flu (Influenza) Admission Data Admit Date/Time: 07/11/22 16:30 Attending Provider: Migdalia Barron Admit Provider: Audi Ohara Primary Care Provider: Jarrod Hardwick Other Providers: Audi Ohara Other Interventions: Discharge Summary Assessment (RN) Last Done: 07/13/22 14:58 Supervising Physician Co-Signing Physician Notes Patient personally see nitin examined by myself, and discussed with Yanira Orona PA-C. I agree with plan as above except as otherwise noted: 61 yo F with extensive smoking Hx presented in acute hypoxic respiratory failure 2/2 influenza infection. Feeling overall much better but with oxygen needs on ambulation specifically. Patient reticent to use oxygen at home however willing to try and discuss further with new PCP. Exam: Patient is well developed well nourished in no acute distress. Lungs are clear to auscultation bilaterally with an intermittent quiet wheeze. No cough. Heart RRR no murmurs no peripheral edema. Abdomen soft nontender nondistended. AAOx3 euthymic affect, frustrated about the oxygen. Plan: acute hypoxic respiratory failure, likely COPD, influenza A: Received three days of IV steroid therapy. Patient adamant about going home, did send another 3 days of oral prednisone 50mg daily to pharmacy. Also started patient on Anoro Ellipta as she likely has COPD given oxygen needs at this time, frequency of albuterol use even when not sick, and chronic smoking. Recommended cessation. Follow up with new PCP regarding how she is doing after discharge, as well as to set up PFTs and further eval her pulmonary status. Patient was firm about leaving today, and at first wanted to go home without oxygen. After discussion patient willing to go home with home oxygen (2LNC at rest, 3LNC with activity) with PCP follow up within the next week. Otherwise see above. Coding Level of Care Code D/C DAY MANAGEMENT >30 MINS Diagnoses Acute hypoxemic respiratory failure J96.01 Acute exacerbation of chronic obstructive pulmonary disease J44.1 Influenza A J10.1 Dyslipidemia E78.5 Hypothyroidism E03.9 Depression F32.A Tobacco abuse Z72.0 COPD (chronic obstructive pulmonary disease) J44.9 History of thoracic aortic aneurysm repair Z98.890; Z86.79 Time Spent (min) 35
== END 2022-07-13 16:28 | disposition home or self-care (01) | DRG 193 ==
LOC: ED 13:29 → EDINP 16:30 → SUATTDRO 16:30 → 2N 18:57